=== PATIENT | male | born 1995 | race Caucasian/White ===

== ENCOUNTER 2020-02-14 21:28 | Inpatient (IN) ==
[2020-02-14] MEDS ORDERED: Clindamycin 900 MG/50 ML 900 MG/50 ML IV.SOLN IVPB ONE (21:36)
[2020-02-14] MEDS ORDERED: Isovue-370 500 ML BOTTLE IVP ONE (21:37)
[2020-02-14] MEDS ORDERED: 0.9 % Sodium Chloride 1,000 ML IVC ONE (21:38)
[2020-02-14] MEDS ORDERED: Ketorolac 15 MG/ML VIAL IVP ONE (21:38)
[2020-02-14] MEDS ORDERED: Ondansetron 4 MG/2 ML VIAL IVP ONE (21:38)
[2020-02-14] MEDS ORDERED: Ampicillin/Sulbactam 1,500 MG in 0.9 % Sodium Chloride Mini Bag 100 ML IVPB ONE (21:43)
[2020-02-14] MEDS ORDERED: Ampicillin/Sulbactam 3,000 MG in 0.9 % Sodium Chloride Mini Bag 100 ML IVPB ONE (21:45)
[2020-02-14 21:50] LABS: Basophils % 0.3 %; Eosinophils # 0.1 K/mcL (0.0-0.6); Hemoglobin 14.9 g/dL (12.9-16.9); Immature Granulocytes % 0.4 % (0-4); Lymphocytes % 17.3 %; Mean Corpuscular HGB Conc 33.1 g/dL (31.6-35.5); Mean Corpuscular Hemoglobin 27.5 pg (28.0-33.3); Mean Platelet Volume 9.3 fL (9.4-12.4); Monocytes # 1.1 K/mcL (0.0-1.3); Monocytes % 9.8 %; Neutrophils # 8.2 K/mcL (1.6-8.9); Platelet Count 344 K/mcL (140-400); Red Blood Count 5.42 M/mcL (4.19-5.50); Red Cell Distribution Width 12.6 % (11.5-14.5); Segmented Neutrophils % 71.2 %; White Blood Count 11.5 K/mcL (4.3-11.1)
[2020-02-14 22:09] LABS: BUN/Creatinine Ratio 18 (6-26); Blood Urea Nitrogen 15 mg/dL (6-20); C-Reactive Protein 38 mg/L (Less than 10); Calcium 9.4 mg/dL (8.6-10.3); Carbon Dioxide 26 mEq/L (23-29); Chloride 103 mEq/L (98-107); Glucose 101 mg/dL (70-105); Osmolality,Calculated 287 (280-300); Potassium 3.8 mEq/L (3.5-5.1); Sodium 138 mEq/L (136-145); eGFR For African Americans > 60 (> 60); eGFR For Non-African Americans > 60 (> 60)
[2020-02-14] MEDS ORDERED: *HR* FentaNYL (PF) 100 MCG/2 ML VIAL IVP ONE (23:13)
[2020-02-15] MEDS ORDERED: Ondansetron 4 MG/2 ML VIAL IVP PRN (00:56)
[2020-02-15] MEDS ORDERED: Naloxone 0.4 MG/ML INJ IVP PRN (00:56)
[2020-02-15] MEDS ORDERED: Ibuprofen 400 MG TABLET PO PRN (01:32)
[2020-02-15] MEDS ORDERED: Acetaminophen 325 MG TABLET PO PRN (01:32)
[2020-02-15] MEDS: Ringers Solution, Lactated 1,000 ML IVC SCH ×2 (01:34→12:25)
[2020-02-15] MEDS ORDERED: Dexamethasone 4 MG/ML VIAL IVP ONE (03:01)
[2020-02-15] MEDS: *HR* OxyCODONE Immed Rel 5 MG TABLET PO PRN (03:21)
[2020-02-15] MEDS ORDERED: Vancomycin 1,250 MG/262.5 ML IV.SOLN IVPB SCH (04:00)
[2020-02-15 05:10] LABS: Basophils % 0.1 %; Eosinophils # 0.1 K/mcL (0.0-0.6); Eosinophils % 1.3 %; Hematocrit 42.5 % (37.5-50.1); Hemoglobin 14.2 g/dL (12.9-16.9); Immature Granulocytes % 0.4 % (0-4); Lymphocytes # 1.4 K/mcL (0.6-4.6); Lymphocytes % 13.9 %; Mean Corpuscular HGB Conc 33.4 g/dL (31.6-35.5); Mean Corpuscular Hemoglobin 28.1 pg (28.0-33.3); Mean Corpuscular Volume 84.2 fL (83.0-100.0); Mean Platelet Volume 9.2 fL (9.4-12.4); Monocytes # 0.7 K/mcL (0.0-1.3); Monocytes % 6.7 %; Neutrophils # 7.6 K/mcL (1.6-8.9); Platelet Count 302 K/mcL (140-400); Red Blood Count 5.05 M/mcL (4.19-5.50); Red Cell Distribution Width 12.7 % (11.5-14.5); Segmented Neutrophils % 77.6 %; White Blood Count 9.8 K/mcL (4.3-11.1)
[2020-02-15 05:28] LABS: BUN/Creatinine Ratio 16 (6-26); Blood Urea Nitrogen 12 mg/dL (6-20); Calcium 8.9 mg/dL (8.6-10.3); Carbon Dioxide 26 mEq/L (23-29); Chloride 106 mEq/L (98-107); Glucose 119 mg/dL (70-105); Osmolality,Calculated 287 (280-300); Potassium 3.7 mEq/L (3.5-5.1); Sodium 138 mEq/L (136-145); eGFR For African Americans > 60 (> 60); eGFR For Non-African Americans > 60 (> 60)
[2020-02-15] MEDS: Ampicillin/Sulbactam 3,000 MG in 0.9 % Sodium Chloride Mini Bag 100 ML IVPB SCH ×4 (05:48→23:54)
[2020-02-15] MEDS: Dexamethasone 4 MG/ML VIAL IVP SCH ×2 (09:01→16:40)
[2020-02-15] MEDS: *HR* HYDROcodone/Acet 5/325 mg TABLET PO PRN ×2 (09:07→16:43)
[2020-02-15] MEDS: Vancomycin 1,250 MG/262.5 ML IV.SOLN IVPB SCH (22:28)
[2020-02-16] MEDS: *HR* HYDROcodone/Acet 5/325 mg TABLET PO PRN ×3 (00:41→16:28)
[2020-02-16] MEDS: Ampicillin/Sulbactam 3,000 MG in 0.9 % Sodium Chloride Mini Bag 100 ML IVPB SCH ×4 (05:04→23:57)
[2020-02-16] MEDS: Vancomycin 1,250 MG/262.5 ML IV.SOLN IVPB SCH ×2 (05:43→14:33)
[2020-02-16] MEDS: Vancomycin 1,500 MG/265 ML IV.SOLN IVPB SCH (22:32)
[2020-02-16] MEDS: *HR* OxyCODONE Immed Rel 5 MG TABLET PO PRN (22:45)
[2020-02-17] MEDS: Ampicillin/Sulbactam 3,000 MG in 0.9 % Sodium Chloride Mini Bag 100 ML IVPB SCH ×3 (04:59→16:10)
[2020-02-17] MEDS: Vancomycin 1,500 MG/265 ML IV.SOLN IVPB SCH ×3 (05:41→21:14)
[2020-02-17] MEDS: *HR* HYDROcodone/Acet 5/325 mg TABLET PO PRN ×3 (05:42→21:14)
[2020-02-17] MEDS: predniSONE 20 MG TABLET PO SCH ×2 (09:40→16:09)
[2020-02-18] MEDS: Ampicillin/Sulbactam 3,000 MG in 0.9 % Sodium Chloride Mini Bag 100 ML IVPB SCH ×4 (00:12→18:01)
[2020-02-18 05:18] LABS: Hematocrit 44.7 % (37.5-50.1); Hemoglobin 14.7 g/dL (12.9-16.9); Mean Corpuscular HGB Conc 32.9 g/dL (31.6-35.5); Mean Corpuscular Hemoglobin 27.1 pg (28.0-33.3); Mean Corpuscular Volume 82.5 fL (83.0-100.0); Platelet Count 363 K/mcL (140-400); Red Blood Count 5.42 M/mcL (4.19-5.50); Red Cell Distribution Width 12.2 % (11.5-14.5); White Blood Count 12.2 K/mcL (4.3-11.1)
[2020-02-18 05:35] LABS: BUN/Creatinine Ratio 16 (6-26); Blood Urea Nitrogen 12 mg/dL (6-20); Calcium 9.2 mg/dL (8.6-10.3); Carbon Dioxide 26 mEq/L (23-29); Chloride 100 mEq/L (98-107); Glucose 106 mg/dL (70-105); Osmolality,Calculated 282 (280-300); Potassium 3.5 mEq/L (3.5-5.1); Sodium 136 mEq/L (136-145); eGFR For African Americans > 60 (> 60); eGFR For Non-African Americans > 60 (> 60)
[2020-02-18] MEDS: Vancomycin 1,500 MG/265 ML IV.SOLN IVPB SCH ×3 (05:55→21:07)
[2020-02-18] MEDS: predniSONE 20 MG TABLET PO SCH ×2 (08:13→18:01)
[2020-02-18] MEDS: *HR* HYDROcodone/Acet 5/325 mg TABLET PO PRN ×2 (11:21→21:09)
[2020-02-19 05:41] LABS: Hematocrit 44.4 % (37.5-50.1); Hemoglobin 14.4 g/dL (12.9-16.9); Mean Corpuscular HGB Conc 32.4 g/dL (31.6-35.5); Mean Corpuscular Hemoglobin 26.9 pg (28.0-33.3); Mean Corpuscular Volume 82.8 fL (83.0-100.0); Mean Platelet Volume 9.3 fL (9.4-12.4); Platelet Count 373 K/mcL (140-400); Red Blood Count 5.36 M/mcL (4.19-5.50); Red Cell Distribution Width 12.2 % (11.5-14.5); White Blood Count 13.6 K/mcL (4.3-11.1)
[2020-02-19] MEDS: Ampicillin/Sulbactam 3,000 MG in 0.9 % Sodium Chloride Mini Bag 100 ML IVPB SCH ×3 (05:49→12:10)
[2020-02-19] MEDS: Vancomycin 1,500 MG/265 ML IV.SOLN IVPB SCH ×2 (05:49→15:57)
[2020-02-19] MEDS: predniSONE 20 MG TABLET PO SCH ×2 (08:15→17:55)
[2020-02-19] MEDS: Doxycycline 100 MG CAPSULE PO SCH (21:11)
[2020-02-20 07:44] VITALS: BP 100/62
[2020-02-20] MEDS: Doxycycline 100 MG CAPSULE PO SCH (09:26)
== END 2020-02-20 11:01 | disposition home or self-care (01) | DRG 115 ==
LOC: EMEROOARM 21:28 → 3BNU 21:28 → SUATTDRO 02-15 00:48 → 3BNU 02-15 01:02
PROVIDERS: ADMIT Internal Medicine; ATTEND Internal Medicine